=== PATIENT | male | born 1960 | race Caucasian/White ===

== ENCOUNTER 2020-05-23 19:42 | Emergency (ER) | payer OTHER ==
--- NOTE | 2020-05-23 20:19 | RAD ---
XR Knee Lt 4 View STANDARD History: Trauma Comparison: None. Findings: No acute displaced tibial nor femoral fracture or malalignment. Extensive enthesopathic abhijit nge and traction apophysitis of the patellar tendon and tibial tuberosity. Extensive enthesopathy of the and quadriceps tendon. New No significant joint effusion. Minimally displaced fibular head fracture. Impression: Minimally displaced fibular head fracture.
--- NOTE | 2020-05-23 20:20 | RAD ---
XR Chest 1 View Portable History: Trauma Comparison: None. Findings: Lungs are clear. No pneumothorax or effusion. Cardiac silhouette and mediastinal contours a re within normal limits. No acute osseous abnormality. Impression: No acute intrathoracic abnormality.
--- NOTE | 2020-05-23 20:22 | RAD ---
XR Hand Rt 3 View STANDARD History: Trauma Comparison: None. Findings: Chronic lunotriquetral coalition. No acute displaced fracture or malalignment. Mild interph alangeal joint space narrowing with osteophyte formation. Moderate vascular calcifications. Impression: No acute osseous abnormality.
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
[2020-05-23 20:47] LABS: Band 12 % (5-11); Hemoglobin 14.2 g/dL (14.0-18.0); Lymphocytes 19 % (21-51); MDiff Complete? YES; Mean Corpuscular HGB CONC 33.7 g/dL (32.0-36.0); Mean Corpuscular Hemoglobin 33.2 pg (27.0-31.0); Mean Corpuscular Volume 98.5 fL (78.0-98.0); Mean Platelet Volume 10.9 fL (7.4-10.4); Monocytes 7 % (0-10); Neutrophil 60 % (42-75); Platelet Clumps MODERATE; Platelet Morphology Comment PLT clumps seen-ADEQ; RBC Distribution Width 12.4 % (11.5-14.5); Reactive Lymphocytes 2 % (0-10); Red Blood Cell (RBC) Count 4.27 mill/uL (4.70-6.10); White Blood Cell (WBC) Count 18.1 thou/uL (4.8-10.8)
[2020-05-23 20:54] LABS: Anion Gap 14 mmol/L (10-20); BUN (Urea Nitrogen) 17 mg/dL (8.4-25.7); Calc. Creatinine Clearance 0 mL/min (70-130); Carbon Dioxide 25 mmol/L (22-29); Chloride 104 mmol/L (98-107); Glucose 210 mg/dL (70-105); Potassium 4.2 mmol/L (3.5-5.1); Sodium 139 mmol/L (136-145)
[2020-05-23] MEDS ORDERED: Bacitracin 1 PK ONE (21:18)
--- NOTE | 2020-05-23 21:32 | RAD ---
XR Tib Fib Lt Leg 2 View History: Pain Comparison: None. Findings: Minimally displaced fibular head fracture. Old deltoid ligament injury. Age-indeterminate fracture lateral process of the talus. Impression: 1. Proximal fibular head fracture. 2. Age-indeterminate fracture lateral process of the talus with mild adjacent soft tissue swelling. A nkle radiographs may be beneficial if clinically warranted.
[2020-05-23] MEDS ORDERED: Boostrix 0.5 ML (Tdap) VIAL ONE (22:37)
== END 2020-05-23 23:22 | disposition home or self-care (01) ==
LOC: ERS 19:42
DX: S82.832A Other fracture of upper and lower end of left fibula, initial encounter for closed fracture (principal); I10 Essential (primary) hypertension; M06.9 Rheumatoid arthritis, unspecified; V20.9XXA Unspecified motorcycle rider injured in collision with pedestrian or animal in traffic accident, initial encounter
CPT/HCPCS: 36415; 71045; 80048; 85025; 90471; 90715; G0390